=== PATIENT | female | born 1965 | race African-American/Black ===

== ENCOUNTER 2019-04-30 22:31 | Emergency (ER) | payer BC ==
[~2019-04-30] VITALS: Ht 167.6 cm; Wt 86.2 kg
[2019-04-30 22:50] VITALS: BP 126/72
== END 2019-05-01 02:00 | disposition left against medical advice (07) ==
LOC: ER 23:04
DX: R07.89 Other chest pain (principal); Z53.21 Procedure and treatment not carried out due to patient leaving prior to being seen by health care provider